=== PATIENT | male | born 1995 | race African-American/Black ===

== ENCOUNTER 2019-09-28 15:46 | Emergency (ER) | payer SELFPAY ==
[2019-09-28 15:52] VITALS: BP 145/62; PULSE 74; TEMP 98; BMI 25.0
--- NOTE | 2019-09-28 15:53 | PDOC ---
Rapid Medical Evaluation Time Seen by Provider: 09/28/19 15:50 Medical Evaluation: 09/28/19 15:51 pt c/o: bump to top of head x 1 year and getting bigger, took abx 3 months ago and seemed to make it smaller Pt on brief exam: noted nontender semi firm mass to parietal region, approx 1.5 cm in circumference. surrounding skin intact Pt ordered for: none Pt to proceed to the ED Discharge Disposition - Diagnosis Head lump, Kerion - Discharge Dispostion Disposition: HOME Condition at time of disposition: Stable - Referrals Referrals: Micheline Freedman MD [Staff Physician] - David Lieberman MD [Primary Care Provider] - - Patient Instructions Printed Discharge Instructions: Tinea Capitis Additional Instructions: You have been diagnosed with what is called a Kerion. This is a form of tinea capitis or ringworm in the scalp. This should be treated by a recreational counselor because it will require many weeks of antifungal medication. The name of a recreational counselor has been given to you. Call the office to make an appointment as soon as possible. Return to the emergency department for high fevers, shaking chills, pus from the wound or any other worsening symptoms. - Post Discharge Activity Work/School Note: Back to Work
--- NOTE | 2019-09-28 16:51 | PDOC ---
History of Present Illness - General Stated Complaint: LUMP ON TOP OF HEAD Time Seen by Provider: 09/28/19 15:50 History Source: Patient Exam Limitations: No Limitations - History of Present Illness Initial Comments: 09/28/19 16:46 Patient is a 23-year-old male who presents to the ED with complaint of a lump on his head that he has had for the last 1 year. He states about 3 months ago he saw an outside doctor who put him on antibiotics and states the bump got smaller but never went away. He was told that if the bump did not resolve he should follow-up with a surgeon which he did not. He states a few weeks ago he scratched the area on his head and feels that has gotten bigger since. He denies any fevers or chills. He denies any headaches. He denies any visual changes. The patient has a history of atopic dermatitis but otherwise denies any past medical history. He has no allergies to medicine. Past History - Past Medical History Allergies/Adverse Reactions: Allergies Allergy/AdvReac Type Severity Reaction Status Date / Time No Known Allergies Allergy Verified 09/28/19 15:52 Home Medications: Ambulatory Orders NK [No Known Home Medication] 09/28/19 COPD: No Other medical history: DERMATITIS - Psycho Social/Smoking Cessation Hx Smoking History: Never smoked Review of Systems - Review of Systems Comments:: 09/28/19 16:47 - Review of Systems Able to Perform ROS?: Yes Constitutional: No: Fever, Chills, Loss of Appetite, Night Sweats, Weakness HEENTM: No: Eye Pain, Vision changes, Ear Pain, Throat Pain, Throat Swelling, Mouth Pain, Difficulty Swallowing Respiratory: No: Cough, Shortness of Breath, Wheezing, Sputum Production Cardiac (ROS): No: Chest Pain, Chest Tightness, Palpitations, Irregular Heart Beat, Edema ABD/GI: No: Nausea, Vomiting, Abdominal Pain, Diarrhea Musculoskeletal: No: Muscle Pain, Back Pain, Joint Pain, Muscle Weakness, Neck Pain Integumentary: No: Lesions, Rash; lump to the right parietal head Neurological: No: Headache, Numbness, Tingling, Weakness, Speech Difficulties *Physical Exam - Vital Signs Last Vital Signs Temp Pulse Resp BP Pulse Ox 98 F 74 18 145/62 100 09/28/19 15:48 09/28/19 15:48 09/28/19 15:48 09/28/19 15:48 09/28/19 15:48 - Physical Exam 09/28/19 16:48 - Physical Exam General Appearance: Nourished, Appropriately Dressed, No Distress Neck: Supple, No Lymphadenopathy (R), No Lymphadenopathy (L), No Rigidity, No Decreased range of motion Respiratory/Chest: Lungs Clear, Normal Breath Sounds. No Respiratory Distress, No Accessory Muscle Use Cardiovascular: Regular Rhythm, Regular Rate, S1, S2 Musculoskeletal: Normal Inspection. No Decreased Range of Motion Extremity: Normal Capillary Refill, Normal Inspection Integumentary: There is a boggy lesion to the right parietal head roughly 4 cm in diameter. There is some tenderness to palpation. No active drainage. No crusty yellow lesions appreciated. There is overlying alopecia appreciated. Neurologic: leather polisher II-XII NML intact, Fully Oriented, Alert, Normal Mood/Affect, Normal Response Medical Decision Making - Medical Decision Making 09/28/19 16:50 The patient has been made aware that the lesion is likely a kerion. He should follow-up with a addiction nurse for further evaluation and treatment. He has been made aware that he likely will need an extensive course of antifungals anywhere from 2 to 6 weeks. He will follow-up with dermatology and a referral has been given to him. He understands and agrees with this treatment plan he is stable for discharge. Discharge - Discharge Information Problems reviewed: Yes Clinical Impression/Diagnosis: Head lump, Kerion Condition: Stable Disposition: HOME - Follow up/Referral Referrals: David Lieberman MD [Primary Care Provider] - Micheline Freedman MD [Staff Physician] - - Patient Discharge Instructions Patient Printed Discharge Instructions: Tinea Capitis Additional Instructions: You have been diagnosed with what is called a Kerion. This is a form of tinea capitis or ringworm in the scalp. This should be treated by a addiction nurse because it will require many weeks of antifungal medication. The name of a addiction nurse has been given to you. Call the office to make an appointment as soon as possible. Return to the emergency department for high fevers, shaking chills, pus from the wound or any other worsening symptoms. - Post Discharge Activity Work/Back to School Note: Back to Work
== END 2019-09-28 16:55 | disposition home or self-care (01) ==
LOC: JERFT 15:46
DX: B35.0 Tinea barbae and tinea capitis (principal)
CPT/HCPCS: 99281-25